=== PATIENT | male | born 1960 | race Caucasian/White ===

== ENCOUNTER 2021-08-17 12:22 | Inpatient (IN) | payer OTHER ==
[~2021-08-17] VITALS: Ht 182.8 cm; Wt 132.6 kg
[2021-08-17] VITALS: BP 130/69
[2021-08-17 12:52] VITALS: BP 119/63
[2021-08-17 12:56] LABS: BASO # 0.1 10*3/uL (0.0-0.1); BASO % 0.9 % (0.0-1.0); EOS # 0.1 10*3/uL (0.0-0.4); EOS % 1.6 % (1.0-4.0); HEMATOCRIT 48.8 % (42.0-52.0); LYMPH # 1.9 10*3/uL (1.3-4.4); MEAN CELL VOLUME 85.5 fl (80.0-94.0); MEAN CORPUSCULAR HGB 28.2 pg (27.0-31.0); MEAN PLATELET VOLUME 10.3 fl (9.6-12.3); MONO # 0.6 10*3/uL (0.1-1.0); MONO % 6.7 % (3.0-9.0); NEUT # 6.1 10*3/uL (2.3-7.9); NEUT % 69.1 % (47.0-73.0); PLATELET COUNT AUTOMATED 191 10*3/uL (130-400); RED BLOOD COUNT 5.71 10*6/uL (4.50-5.90); RED CELL DISTRI WIDTH 15.6 % (0-14.5); WHITE BLOOD COUNT 8.8 10*3/uL (4.8-10.8)
[2021-08-17 13:07] LABS: ACT PARTIAL THROMBO TIME 29.3 SECONDS (20.0-32.1)
[2021-08-17 13:23] LABS: ALKALINE PHOSPHATASE 131 U/L (45-117); BUN 14 mg/dl (7-24); CHLORIDE 112 mmol/L (98-107); CREATININE 1.07 mg/dL (0.70-1.30); POTASSIUM 3.8 mmol/L (3.5-5.1); SGOT/AST 23 IU/L (3-35); SGPT/ALT 43 U/L (12-78); SODIUM 142 mmol/L (136-145); TOTAL PROTEIN 6.9 gm/dL (6.4-8.2)
[2021-08-17 14:08] VITALS: BP 122/70
[2021-08-17] MEDS ORDERED: GLIPIZIDE5 MG PO ×2 (14:21→21:02)
[2021-08-17] MEDS ORDERED: ALOGLIPTIN25 MG PO (14:21)
[2021-08-17] MEDS ORDERED: COZAAR25 M1 PO (14:22)
[2021-08-17] MEDS ORDERED: CLARITIN10 MG PO (14:22)
[2021-08-17] MEDS ORDERED: PROTONIX40 MG PO (14:23)
[2021-08-17] MEDS ORDERED: FISH OIL 1,0001 EAC5 PO (14:23)
[2021-08-17] MEDS ORDERED: ELIQUIS5 M1 PO (14:24)
[2021-08-17] MEDS ORDERED: NEURONTIN100 MG PO (14:24)
[2021-08-17 15:22] VITALS: BP 122/76
[2021-08-17 16:00] VITALS: BP 130/69
[2021-08-17 20:00] VITALS: BP 130/69
[2021-08-17] MEDS ORDERED: JARDIANCE25 MG PO (20:57)
[2021-08-17] MEDS ORDERED: GLUCOTROL10 MG PO (20:58)
[2021-08-17] MEDS ORDERED: LOSARTAN POTASS50 M1 PO (20:59)
[2021-08-17] MEDS ORDERED: ROSUVASTATIN CA10 MG PO (21:00)
[2021-08-17] MEDS ORDERED: FISH OIL 1,0001 EAC1 PO (21:02)
[2021-08-17] MEDS ORDERED: MEN'S ONE DAIL1 EACH PO (21:04)
[2021-08-18] VITALS: BP 129/71; BP 130/69
[2021-08-18 06:06] LABS: BASO # 0.1 10*3/uL (0.0-0.1); BASO % 1.1 % (0.0-1.0); EOS # 0.3 10*3/uL (0.0-0.4); EOS % 3.2 % (1.0-4.0); HEMATOCRIT 47.7 % (42.0-52.0); LYMPH # 1.8 10*3/uL (1.3-4.4); LYMPH % 21.8 % (27.0-41.0); MEAN CELL VOLUME 87.4 fl (80.0-94.0); MEAN CORPUSCULAR HGB 28.4 pg (27.0-31.0); MEAN CORPUSCULAR HGB CONC 32.5 g/dl (33.0-37.0); MEAN PLATELET VOLUME 10.8 fl (9.6-12.3); MONO # 0.6 10*3/uL (0.1-1.0); NEUT # 5.3 10*3/uL (2.3-7.9); NEUT % 65.4 % (47.0-73.0); PLATELET COUNT AUTOMATED 183 10*3/uL (130-400); RED BLOOD COUNT 5.46 10*6/uL (4.50-5.90); RED CELL DISTRI WIDTH 15.5 % (0-14.5)
[2021-08-18 06:11] LABS: CHLORIDE 111 mmol/L (98-107); CREATININE 1.07 mg/dL (0.70-1.30); POTASSIUM 3.9 mmol/L (3.5-5.1); SGOT/AST 19 IU/L (3-35); SGPT/ALT 39 U/L (12-78); SODIUM 143 mmol/L (136-145); TOTAL PROTEIN 6.2 gm/dL (6.4-8.2)
[2021-08-18 06:17] LABS: ALKALINE PHOSPHATASE 105 U/L (45-117); BUN 16 mg/dl (7-24); CHOLESTEROL 92 mg/dL (<200); LDL CHOLESTEROL 7 mg/dL (9-159); TRIGLYCERIDES 121 mg/dl (<150)
[2021-08-18 08:00] VITALS: BP 122/58
[2021-08-18 12:00] VITALS: BP 114/60
[2021-08-18 16:00] VITALS: BP 104/57
[2021-08-18 20:00] VITALS: BP 129/66
[2021-08-19] VITALS: BP 127/61
[2021-08-19 06:25] LABS: BASO # 0.1 10*3/uL (0.0-0.1); EOS # 0.2 10*3/uL (0.0-0.4); EOS % 2.5 % (1.0-4.0); HEMATOCRIT 45.7 % (42.0-52.0); LYMPH # 1.6 10*3/uL (1.3-4.4); LYMPH % 22.9 % (27.0-41.0); MEAN CELL VOLUME 87.9 fl (80.0-94.0); MEAN CORPUSCULAR HGB 29.2 pg (27.0-31.0); MEAN CORPUSCULAR HGB CONC 33.3 g/dl (33.0-37.0); MEAN PLATELET VOLUME 10.9 fl (9.6-12.3); MONO # 0.5 10*3/uL (0.1-1.0); MONO % 7.8 % (3.0-9.0); NEUT # 4.4 10*3/uL (2.3-7.9); NEUT % 64.9 % (47.0-73.0); PLATELET COUNT AUTOMATED 157 10*3/uL (130-400); RED CELL DISTRI WIDTH 15.3 % (0-14.5); WHITE BLOOD COUNT 6.8 10*3/uL (4.8-10.8)
[2021-08-19 06:30] LABS: BUN 15 mg/dl (7-24); CHLORIDE 111 mmol/L (98-107); CREATININE 0.86 mg/dL (0.70-1.30); POTASSIUM 4.3 mmol/L (3.5-5.1); SODIUM 141 mmol/L (136-145)
[2021-08-19 08:00] VITALS: BP 124/60
[2021-08-19 12:00] VITALS: BP 119/70
== END 2021-08-19 16:00 | disposition home or self-care (01) | DRG 392 ==
LOC: ED 12:22 → EDHOLD 15:18 → 5E 15:18 → EDHOLD 15:59 → 5E 18:07
PROVIDERS: Internal Medicine; Nurse Practitioner Family; ADMIT Internal Medicine; ATTEND Internal Medicine
PROC: 4A02XM4 Measurement of Cardiac Total Activity, External Approach (ICD-10-PCS; principal; 2021-08-19)
PROC: 3E073KZ Introduction of Other Diagnostic Substance into Coronary Artery, Percutaneous Approach (ICD-10-PCS; 2021-08-19)
DX: K21.9 Gastro-esophageal reflux disease without esophagitis (principal); E44.0 Moderate protein-calorie malnutrition; Z68.41 Body mass index [BMI] 40.0-44.9, adult; R07.9 Chest pain, unspecified; I10 Essential (primary) hypertension; J30.2 Other seasonal allergic rhinitis; E66.01 Morbid (severe) obesity due to excess calories; E11.49 Type 2 diabetes mellitus with other diabetic neurological complication; E83.41 Hypermagnesemia; E11.65 Type 2 diabetes mellitus with hyperglycemia; I48.0 Paroxysmal atrial fibrillation; E78.5 Hyperlipidemia, unspecified